=== PATIENT | male | born 1995 | race Caucasian/White ===

== ENCOUNTER → 2018-02-28 | Emergency (ER) | payer OTHER ==
--- NOTE | 2018-02-28 23:54 | ED ---
Laceration/Wound HPI - HPI Summary HPI Summary: 22 year male presents with left ring finger laceration today. He states he cut it on some glass. he denies any foreign body in the wound. There is no actively bleeding. Immunizations up-to-date. No medical conditions. - History of Current Complaint Stated Complaint: LT FINGER LAC Time Seen by Provider: 02/28/18 23:39 Pain Intensity: 0 - Allergy/Home Medications Allergies/Adverse Reactions: Allergies Allergy/AdvReac Type Severity Reaction Status Date / Time No Known Allergies Allergy Verified 07/09/15 15:59 PMH/Surg Hx/FS Hx/Imm Hx Endocrine/Hematology History: Denies: Hx Anticoagulant Therapy Respiratory History: Denies: Hx Asthma - Surgical History Surgery Procedure, Year, and Place: Hydrocele Surgery. Clavicle surgery - plates/screws Infectious Disease History: No Infectious Disease History: Denies: History Other Infectious Disease, Traveled Outside the [place] in Last 30 Days - Family History Known Family History: Negative: Diabetes - Social History Alcohol Use: Daily Substance Use Type: Reports: None Substance Use Comment - Amount & Last Used: unknown Smoking Status (MU): Former Smoker Review of Systems Negative: Fever Negative: Chest Pain Negative: Shortness Of Breath Positive: Other - left hand laceration All Other Systems Reviewed And Are Negative: Yes Physical Exam Triage Information Reviewed: Yes Vital Signs On Initial Exam: Initial Vitals Temp Pulse Resp BP Pulse Ox 98.4 F 62 16 136/82 98 02/28/18 23:13 02/28/18 23:13 02/28/18 23:13 02/28/18 23:13 02/28/18 23:13 Vital Signs Reviewed: Yes Appearance: Positive: Well-Appearing Skin: Positive: Warm, Dry, Other - 1cm by 1/2cm laceration to left ring finger at MCP Head/Face: Positive: Normal Head/Face Inspection Eyes: Positive: Normal, Conjunctiva Clear ENT: Positive: Pharynx normal Respiratory/Lung Sounds: Positive: Clear to Auscultation, Breath Sounds Present Cardiovascular: Positive: Normal, RRR Musculoskeletal: Positive: Strength/ROM Intact - left hand, Other - capillary refill<2secs Neurological: Positive: Normal Psychiatric: Positive: Normal Procedures - Laceration/Wound Repair 1 Location: Other - left hand Description: Linear Length, Depth and Shape: 1cm by 1/2cm Irrigated w/ Saline (ccs): 50 Suture Type: Nylon Number of Sutures: 2 Sterile Dressing Applied?: No - telfa and coband with ruthie tape Diagnostics - Vital Signs Vital Signs Temp Pulse Resp BP Pulse Ox 02/28/18 23:13 98.4 F 62 16 136/82 98 - Laboratory Lab Statement: Any lab studies that have been ordered have been reviewed, and results considered in the medical decision making process. Laceration Repair Course/Dx - Course Course Of Treatment: 22 year male presents with left ring finger laceration today. He states he cut it on some glass. he denies any foreign body in the wound. There is no actively bleeding. Immunizations up-to-date. No medical conditions. On exam has 1cm by 1/2cm laceration to the MCP of left ring finger. Clean area and place 2 stitches as patient did not want numbing medication. ruthie taped and told the patient to keep the area clean. Patient understands agrees with plan. - Differential Dx Differental Diagnoses: Abrasion, Avulsion, Laceration - Clinical Impression Provider Diagnoses: Laceration of left ring finger Discharge - Sign-Out/Discharge Documenting (check all that apply): Patient Departure - Discharge Plan Condition: Good Disposition: HOME Patient Education Materials: Care For Your Stitches (ED) Referrals: No Primary Care Phys,NOPCP [Primary Care Provider] - Additional Instructions: Take Tylenol or ibuprofen for pain every 6 hours as needed Keep area clean and dry for 24 hours keep area taped together (can change dressing) for next couple days until starts to heal Return to ED or primary in 8-10 days to have sutures removed Return to ED if develop signs of infection such as fever, spreading redness, or pus. - Billing Disposition and Condition Condition: GOOD Disposition: Home
[2018-02-28 23:55] VITALS: BP 150/79
== END | disposition home or self-care (01) ==
LOC: ED 23:11
DX: S61.215A Laceration without foreign body of left ring finger without damage to nail, initial encounter (principal); W25.XXXA Contact with sharp glass, initial encounter; Y92.9 Unspecified place or not applicable; Z87.891 Personal history of nicotine dependence
CPT/HCPCS: 12001; 99282